=== PATIENT | male | born 2000 | race Caucasian/White ===

== ENCOUNTER 2024-07-10 03:02 | Emergency (ER) | payer OTHER, SELFPAY ==
[2024-07-10] VITALS (13 sets, daily range): BP systolic 70–123; BP diastolic 37–77; BMI 20.9
[2024-07-10 03:46] LABS: % Basophils 0.3 % (0-2); % Eosinophils 0.5 % (0-6); % Immature Granulocytes 0.5 % (0-0.5); % Lymphocytes 1.7 % (20.5-51.1); % Monocytes 8.1 % (1.7-9.3); % Neutrophils 88.9 % (42.2-75.2); Absolute Eosinophils 0.1 10^3/uL (0-0.7); Absolute Immature Granulocytes 0.1 10^3/uL (0-0.05); Absolute Lymphocytes 0.2 10^3/uL (1.2-3.4); Absolute Monocytes 0.7 10^3/uL (0.1-0.6); Absolute Neutrophils 8.2 10^3/uL (1.4-6.5); Hematocrit 47.2 % (39.0-52.0); Hemoglobin 15.7 g/dL (13.0-18.0); Mean Corp Hgb Conc. 33.3 g/dL (33.0-37.0); Mean Corpuscular Hgb 27.9 pg (27.0-31.0); Mean Corpuscular Volume 83.8 fL (80.0-94.0); Mean Platelet Volume 12.2 fL (7.4-10.4); Nucleated Red Blood Cells % 0 % (-); Platelet Count 220 10^3/uL (130-400); Red Blood Cell Count 5.63 10^6/uL (4.70-6.10); Red Cell Dist. Width 12.3 % (11.5-14.5); White Blood Cell Count 9.2 10^3/uL (4.8-10.8)
--- NOTE | 2024-07-10 04:03 | ED.GENMED ---
History of Present Illness
<ISMA Man - Last Filed: 07/10/24 06:21>
General
Chief Complaint: Abdominal Symptoms
Source: patient
Time Seen by Provider: 07/10/24 03:53
Nursing documentation reviewed up to this point in time: agreed with
History of Present Illness
History of Present Illness:
Pt is a 24 yo M who presents with nausea and vomiting that began at 5pm central time in [place]. Pt states that he was in the airport with his father at [place] and ate chicken and a salad in the airport. Pt states that during the entire flight
he had nausea, vomiting, and chills. He also reports having an episode of diarrhea. Pt also states that he has a headache that is 8/10. Pt states that he was not able to keep anything down. Pt states that since eating that at the airport, he has
only had water, Gatorade, and tea. Pt denies abdominal pain, chest pain, shortness of breath. Pt states that his father ate the same order of food as he did, and that his father does not have any symptoms.
Review of Systems
<ISMA Man - Last Filed: 07/10/24 06:21>
Review of Systems
Allergies reviewed?: Yes
Constitutional: Reports chills
EENT: Reports no symptoms
Respiratory: Reports no symptoms
Cardiac: Reports no symptoms
ABD/GI: Reports nausea, vomiting and diarrhea
Musculoskeletal: Reports no symptoms
Neurological: Reports headache
Phy Exam
<ISMA Man - Last Filed: 07/10/24 06:21>
General Physical Exam
General Presentation: well appearing
General age: appears stated age
General Skin: warm
General Habitus: normal
General Mental: alert
General Hydration: appears well hydrated
Cardiovascular Exam
Cardiovascular Exam: regular rate/rhythm
Pulmonary Exam
Pulmonary Exam: lungs clear
Gastrointestinal Exam
Gastrointestinal Exam: normal bowel sounds, non tender, soft and non distended
Course
<Sandrine Winkler GT - Last Filed: 07/10/24 06:21>
Orders/Labs/Results
Orders:
Orders
07/10/24 03:24
Complete Blood Count/With Diff Urgent
Comprehensive Metabolic Panel Urgent
07/10/24 04:46
Acetaminophen [Tylenol] 1,000 mg PO NOW STA
07/10/24 06:24
0.9% Sodium Chloride 1000 ml [Nss] 1,000 ml IV BOLUS
Ondansetron Injectable [Zofran] 4 mg IV NOW STA
07/10/24 07:18
Stool Culture Urgent
DEJON Source: Feces/Stool
Specimen Description:
Date Specimen was Collected: 07/10/24
Time Specimen was Collected: 07:22
Abnormal Lab Results
07/10/24
03:24
MPV 12.2 H fL
(7.4-10.4)
Abs Immat Gran (auto) 0.1 H 10^3/uL
(0-0.05)
Absolute Neuts (auto) 8.2 H 10^3/uL
(1.4-6.5)
Absolute Lymphs (auto) 0.2 L 10^3/uL
(1.2-3.4)
Absolute Monos (auto) 0.7 H 10^3/uL
(0.1-0.6)
Neutrophils % 88.9 H %
(42.2-75.2)
Lymphocytes % 1.7 L %
(20.5-51.1)
BUN 25 H mg/dl
(9-20)
Glucose 130 H mg/dl
(70-99)
07/10/24 03:24
07/10/24 03:24
Vital Signs
Initial and Last Documented VS:
Initial Vital Signs
Temp Pulse Resp BP Pulse Ox
100.2 F 75 18 70/37 95
07/10/24 03:04 07/10/24 03:04 07/10/24 03:04 07/10/24 03:04 07/10/24 03:04
Last Documented Vital Signs
Temp Pulse Resp BP Pulse Ox
98.2 F 91 16 112/57 97
07/10/24 03:56 07/10/24 07:00 07/10/24 07:00 07/10/24 07:00 07/10/24 07:00
<Kinsey Dias, DO - Last Filed: 07/10/24 07:25>
Orders/Labs/Results
Orders:
Orders
07/10/24 03:24
Complete Blood Count/With Diff Urgent
Comprehensive Metabolic Panel Urgent
07/10/24 04:46
Acetaminophen [Tylenol] 1,000 mg PO NOW STA
07/10/24 06:24
0.9% Sodium Chloride 1000 ml [Nss] 1,000 ml IV BOLUS
Ondansetron Injectable [Zofran] 4 mg IV NOW STA
07/10/24 07:18
Stool Culture Urgent
DEJON Source: Feces/Stool
Specimen Description:
Date Specimen was Collected: 07/10/24
Time Specimen was Collected: 07:22
Abnormal Lab Results
07/10/24
03:24
MPV 12.2 H fL
(7.4-10.4)
Abs Immat Gran (auto) 0.1 H 10^3/uL
(0-0.05)
Absolute Neuts (auto) 8.2 H 10^3/uL
(1.4-6.5)
Absolute Lymphs (auto) 0.2 L 10^3/uL
(1.2-3.4)
Absolute Monos (auto) 0.7 H 10^3/uL
(0.1-0.6)
Neutrophils % 88.9 H %
(42.2-75.2)
Lymphocytes % 1.7 L %
(20.5-51.1)
BUN 25 H mg/dl
(9-20)
Glucose 130 H mg/dl
(70-99)
07/10/24 03:24
07/10/24 03:24
Vital Signs
Initial and Last Documented VS:
Initial Vital Signs
Temp Pulse Resp BP Pulse Ox
100.2 F 75 18 70/37 95
07/10/24 03:04 07/10/24 03:04 07/10/24 03:04 07/10/24 03:04 07/10/24 03:04
Last Documented Vital Signs
Temp Pulse Resp BP Pulse Ox
98.2 F 91 16 112/57 97
07/10/24 03:56 07/10/24 07:00 07/10/24 07:00 07/10/24 07:00 07/10/24 07:00
<ISMA Man - Last Filed: 07/10/24 06:21>
MDM/Problems Addressed
Differential Diagnosis Includes:
Gastroenteritis, salmonella
<ISMA Man - Last Filed: 07/10/24 06:21>
*Critical Care Note
Total Time (30-74mins, 75-104mins- exclusive of procedures): Not Applicable
<Kinsey Dias DO - Last Filed: 07/10/24 07:25>
*Pulse Oximetry
Patient hypoxic: no
ED Attending Note
<ISMA Man - Last Filed: 07/10/24 06:21>
-
Portions of this chart may have been created with voice recognition software.� Occasional wrong word or��sound alike� substitutions may have occurred due to the inherent limitations of voice recognition software.
<Kinsey Dias, DO - Last Filed: 07/10/24 07:25>
ED Attending Note
Patient seen and examined by attending physician: Yes
I performed the substantive portion of visit, reviewed & personally made and approve the management plan that is documented in note by myself or ANDI.: Yes
ED Attending Note:
This is a 24-year-old male with no significant past medical history returned from a weekend trip to [place] with his father earlier this morning. Was feeling well until shortly after eating a chicken sandwich while in [place] airport. Once he
boarded the plane in [place] he developed nausea, vomiting, diarrhea which persisted throughout his entire flight. He denies hematemesis nor hematochezia. He does admit to intermittent chills and sweats. His father ate similar food and is
currently feeling well.
Patient has had no vomiting or diarrhea since arrival to the ED. Nausea has resolved. He denies abdominal pain. He admits to feeling of generalized weakness and lightheadedness with standing.
He takes no medicines on a daily basis.
No recent antibiotic use.
No history of similar episodes in the past.
GENERAL: 24-year-old male appears his stated age. Awake and alert, pleasant, appears mildly ill. Easily communicative. Mild hypotension noted initially, has promptly normalized with IV fluids. Low-grade fever noted initially, has normalized upon
recheck but now is 98.9 �F upon my initial evaluation.
EYE: pupils equal and reactive. anicteric
NECK: Supple, nontender, no meningismus, no significant adenopathy.
ENT: posterior pharynx is clear, oral mucosa is moist. TM clear b/l, nares patent.
CARDIAC: Regular rate and rhythm. no murmur.
LUNGS: Clear breath sounds bilaterally, no acute respiratory distress, no wheezes/rales/rhonchi
ABDOMEN: Soft, nondistended, without focal tenderness, no r/g, no cvat. normoactive BS.
NEUROLOGICAL: Alert and oriented x3, no focal neuro deficits.
SKIN: Warm and dry, normal color, skin intact. No rash.
MUSCULOSKELETAL: No C/C/E. peripheral pulses are full and equal b/l. No palpable tenderness.
PSYCH: Normal and appropriate interaction.
Concern for acute gastroenteritis either viral versus foodborne. Concern for acute dehydration, electrolyte abnormality.
Abdominal exam is reassuring, soft, nontender.
Labs are pending. Will continue IV fluids.
Currently tolerating sips of water.
07/10/2024 06:15 AM
Patient has passed 1 loose stool and upon returning to [facility] has developed nausea and vomited small amount of clear liquid.
Orthostatics mildly positive with standing.
He has been tolerating oral fluids. Abdomen remains soft without appreciable tenderness.
Will continue IV fluids and give an IV dose of Zofran. Will continue to observe.
Labs are reassuring, unremarkable.
Discharge Plan
Departure
Patient Disposition: Home (Routine Discharge)
Date of Disposition: 07/10/24
Time of Disposition: 07:22
Patient with high blood pressure during this ER visit?: No
Condition: Good
Discharge Problem:
Acute gastroenteritis
Instructions: Viral gastroenteritis in adults, Clear Liquid Diet
Prescriptions:
New
diphenoxylate-atropine [Lomotil] 2.5-0.025 mg tablet
1 tab PO QID PRN (Reason: diarrhea) Qty: 10 0RF
ondansetron 4 mg tablet,disintegrating
4 mg PO QID PRN (Reason: nausea and vomiting) Qty: 20 0RF
Referrals:
Renetta Dunne MD [Family Provider] - Call in 1-3 days for appt
Interventions
Interventions:
*Risk Screen - Suicide Last Done: 07/10/24 03:04
*General Assessment Last Done: 07/10/24 03:04
*Neglect/Abuse Screening Last Done: 07/10/24 03:04
*ED COVID-19 Vaccine History Last Done: 07/10/24 03:20
AK-Mmfwhw-Uljhugaxqr Assessment Last Done: 07/10/24 03:19
Discharge Date and Time
Print Language: AMERICAN
[2024-07-10 04:05] LABS: ALT (SGPT) 21 U/L (0-50); AST (SGOT) 30 U/L (17-59); Albumin 4.7 g/dl (3.5-5.0); Alkaline Phosphatase 52 U/L (38-126); Blood Urea Nitrogen 25 mg/dl (9-20); Calcium 9.8 mg/dl (8.4-10.2); Carbon Dioxide 24 mmol/L (22-30); Chloride 102 mmol/L (98-107); Estimated Creatinine Clearance 96 ml/min; Glucose 130 mg/dl (70-99); Potassium 4.3 mmol/L (3.5-5.1); Sodium 142 mmol/L (135-145); Total Bilirubin 1.1 mg/dl (0.2-1.3); eGFR > 60.00
[2024-07-10] MEDS: TYLENOL 1000 MG PO (05:01)
[2024-07-10] MEDS: NSS 1000 IV (06:30)
[2024-07-10] MEDS: ZOFRAN 4 MG IV (06:30)
[2024-07-10] MEDS: LR 1000 IV (07:37)
== END 2024-07-10 08:50 | disposition home or self-care (01) ==
LOC: EMR 03:02
PROVIDERS: EMERGENCY PHYSICIAN Emergency Medicine; FAMILY PHYSICIAN Family Medicine
DX: K52.9 Noninfective gastroenteritis and colitis, unspecified (principal)
CPT/HCPCS: 99282; 96374; 96361; 80053; 85025; 87045; 87046; 87427